=== PATIENT | male | born 1960 | race Caucasian/White ===

== ENCOUNTER → 2025-05-05 | Outpatient (CLI) | payer MEDICAID, SELFPAY ==
--- NOTE | 2025-05-05 15:50 | XR_ITS ---
Examination: Bilateral hands, 6 views. Technique: AP, Oblique, Lateral each hand total 6 views Date and time of exam: May 05, 2025 1554 hours INDICATIONS: Bilateral hand pain for years. FINDINGS: Mild juxta-articular bone demineralization Mild diffuse narrowing joints of the wrist and hand bilaterally No erosive arthritis No significant osteoarthritis No fracture is No cortical bone destruction No opaque foreign bodies Impression: Mild juxta-articular bone demineralization Mild diffuse narrowing joints of the wrist and hand bilaterally
--- NOTE | 2025-05-05 15:50 | XR_ITS ---
Examination: Bilateral wrists 6 views TECHNIQUE: AP oblique lateral right liver is 6 views Date and time: December 05, 2024 1600 hours INDICATIONS: Bilateral wrist pain for years. FINDINGS: Mild osteopenia Mild diffuse narrowing radiocarpal intercarpal carpometacarpal joints No erosive arthritis No significant osteoarthritis No fractures No avascular necrosis IMPRESSION: Mild diffuse narrowing radiocarpal, intercarpal, carpometacarpal joints
== END | disposition home or self-care (01) ==
LOC: CDIM 15:37
PROVIDERS: Referring Provider Nurse Practitioner Gerontology; Visit Provider Nurse Practitioner Gerontology
DX: M25.842 Other specified joint disorders, left hand (principal); M25.841 Other specified joint disorders, right hand; M25.832 Other specified joint disorders, left wrist; M25.831 Other specified joint disorders, right wrist
CPT/HCPCS: 73110; 73130